=== PATIENT | female | born 1955 | race Caucasian/White ===

== ENCOUNTER 2021-05-10 13:26 | Emergency (ER) | payer MEDICARE ==
[2021-05-10 13:48] VITALS: BP 135/70; PULSE 103; RESP 20; TEMP 98.1
[2021-05-10 15:24] LABS: Basophils % (A) 0 %; Eosinophils # (A) 0.1 k/uL (0-0.7); Eosinophils % (A) 1 %; HCT 37.6 % (34.0-46.0); Lymphocytes # (A) 1.3 k/uL (1.0-4.8); Lymphocytes % (A) 17 %; MCH 31.2 pg (25.0-35.0); MCHC 34.7 g/dL (31.0-37.0); Mean Platelet Volume 6.7; Monocytes # (A) 0.4 k/uL (0-1.0); Monocytes % (A) 5 %; Neutrophils # (A) 5.8 k/uL (1.3-7.7); Neutrophils % (A) 76 %; Platelet Count 303 k/uL (150-450); RBC 4.18 m/uL (3.80-5.40); RDW 13.8 % (11.5-15.5); WBC 7.6 k/uL (3.8-10.6)
[2021-05-10 15:37] LABS: ALT 20 U/L (4-34); AST 30 U/L (14-36); African American GFR (CKD) >90 (>60 ml/min/1.73 sqM); Albumin 4.7 g/dL (3.5-5.0); Alkaline Phosphatase 117 U/L (38-126); Anion Gap 9 mmol/L; Blood Urea Nitrogen 15 mg/dL (7-17); Calcium 9.6 mg/dL (8.4-10.2); Carbon Dioxide 24 mmol/L (22-30); Chloride 105 mmol/L (98-107); Glucose 98 mg/dL (74-99); Non-African American GFR(CKD) >90 (>60 ml/min/1.73 sqM); Potassium 4.1 mmol/L (3.5-5.1); Sodium 138 mmol/L (137-145); Total Bilirubin 0.4 mg/dL (0.2-1.3); Total Protein 7.7 g/dL (6.3-8.2)
--- NOTE | 2021-05-10 16:21 | ED ---
General Adult HPI - General Chief complaint: Extremity Problem,Nontraumatic Stated complaint: lt arm pain Time Seen by Provider: 05/10/21 14:37 Source: patient Mode of arrival: ambulatory Limitations: no limitations - History of Present Illness Initial comments: Patient is a healthy 65-year-old female, presenting to the emergency Department with complaints of having some left arm pain over the last 3 days. She denies any injuries or trauma. No previous surgeries or injuries to her left upper extremity. She states a few days ago she did wake up with a sore left neck, thought she slept wrong and then developed this posterior left arm pain. She d escribes it is near her tricep area with some radiation into her left elbow. She denies any chest pain or shortness of breath, no recent fevers or chills, no nausea or vomiting, no abdominal pain. She states she takes no medications. She was concerned that this pain could be coming from something else other than muscle related and came in for evaluation. She has no history of cardiac events. She has no further complaints at this time. Patient's vitals are stable upon arrival. - Related Data Allergies Allergy/AdvReac Type Severity Reaction Status Date / Time No Known Allergies Allergy Verified 05/10/21 13:44 Review of Systems ROS Statement: Those systems with pertinent positive or pertinent negative responses have been documented in the HPI. ROS Other: All systems not noted in ROS Statement are negative. Past Medical History Past Medical History: No Reported History History of Any Multi-Drug Resistant Organisms: None Reported Past Surgical History: No Surgical Hx Reported Past Psychological History: No Psychological Hx Reported Smoking Status: Never smoker Past Alcohol Use History: None Reported Past Drug Use History: None Reported General Exam - General Exam Comments Initial Comments: GENERAL: Patient is well-developed and well-nourished. Patient is nontoxic and in no acute distress. HEAD: Atraumatic, normocephalic. EYES: Pupils equal round and reactive to light, extraocular movements intact, sclera anicteric, conjunctiva are normal. Eyelids were unremarkable. ENT: Moist mucous membranes. NECK: Normal range of motion, supple without lymphadenopathy or JVD. Patient has some tightness of the left upper trapezius muscle, muscle spasms present. LUNGS: Unlabored respirations. Breath sounds clear to auscultation bilaterally and equal. No wheezes rales or rhonchi. HEART: Regular rate and rhythm without murmurs, rubs or gallops. ABDOMEN: Soft, nontender, normoactive bowel sounds. No guarding, no rebound. No masses appreciated. : Deferred MUSCULOSKELETAL: Normal extremities with adequate strength and normal range of motion, no pitting or edema. No clubbing or cyanosis. No pain of the entire left shoulder, she has full left shoulder range of motion and strength is normal. She does have some mild tenderness noted to the left tricep area, no signs of infection or deformity, no swelling or bruising. NEUROLOGICAL: Patient is alert and oriented x 3. Motor and sensory are also intact. Cranial nerves II through XII grossly intact. Symmetrical smile. Normal speech, normal gait. PSYCH: Normal mood, normal affect. SKIN: Warm, Dry, normal turgor, no rashes or lesions noted. Limitations: no limitations Course Vital Signs 05/10/21 13:45 Temperature 98.1 F Pulse Rate 103 H Respiratory 20 Rate Blood Pressure 135/70 O2 Sat by Pulse 97 Oximetry EKG Findings - EKG Comments: EKG Findings:: Normal sinus rhythm, normal ECG, no signs of acute process. Ventricular rate 89, MI interval 148, QT 360. Medical Decision Making - Medical Decision Making Patient is a 65-year-old female here with some mild left arm pain around her tricep area over the past 3 days. She did have some tightness of her left trapezius muscle on exam, she states she slipped wrong a few days ago. Her EKG showed normal sinus rhythm, no acute process. I did check basic labs and a troponin which were all within normal limits. I discussed with patient this is most likely related to muscle spasm of the left trapezius and some mild radiculopathy. I recommended heat to the area, gentle massage and stretching. If symptoms persist she can follow up with her primary care physician. She is in agreement with this plan of care and is stable for discharge. Case discussed with Dr. Westfall. - Lab Data Result diagrams: 05/10/21 15:17 05/10/21 15:17 Lab Results 05/10/21 05/10/21 05/10/21 Range/Units 15:17 15:17 15:17 WBC 7.6 (3.8-10.6) k/uL RBC 4.18 (3.80-5.40) m/uL Hgb 13.0 (11.4-16.0) gm/dL Hct 37.6 (34.0-46.0) % MCV 90.0 (80.0-100.0) fL MCH 31.2 (25.0-35.0) pg MCHC 34.7 (31.0-37.0) g/dL RDW 13.8 (11.5-15.5) % Plt Count 303 (150-450) k/uL MPV 6.7 Neutrophils % 76 % Lymphocytes % 17 % Monocytes % 5 % Eosinophils % 1 % Basophils % 0 % Neutrophils # 5.8 (1.3-7.7) k/uL Lymphocytes # 1.3 (1.0-4.8) k/uL Monocytes # 0.4 (0-1.0) k/uL Eosinophils # 0.1 (0-0.7) k/uL Basophils # 0.0 (0-0.2) k/uL Sodium 138 (137-145) mmol/L Potassium 4.1 (3.5-5.1) mmol/L Chloride 105 (98-107) mmol/L Carbon Dioxide 24 (22-30) mmol/L Anion Gap 9 mmol/L BUN 15 (7-17) mg/dL Creatinine 0.67 (0.52-1.04) mg/dL Est GFR (CKD-EPI)AfAm >90 (>60 ml/min/1.73 sqM) Est GFR (CKD-EPI)NonAf >90 (>60 ml/min/1.73 sqM) Glucose 98 (74-99) mg/dL Calcium 9.6 (8.4-10.2) mg/dL Total Bilirubin 0.4 (0.2-1.3) mg/dL AST 30 (14-36) U/L ALT 20 (4-34) U/L Alkaline Phosphatase 117 (38-126) U/L Troponin I <0.012 (0.000-0.034) ng/mL Total Protein 7.7 (6.3-8.2) g/dL Albumin 4.7 (3.5-5.0) g/dL Disposition Clinical Impression: Strain of left trapezius muscle, Left arm pain, Muscle spasm Disposition: HOME SELF-CARE Condition: Stable Instructions (If sedation given, give patient instructions): Muscle Spasm (ED) Additional Instructions: Please return to the Emergency Department if symptoms worsen or any other concerns. These use heat to the area, gentle massage, stretching. Follow up with your primary care physician. Is patient prescribed a controlled substance at d/c from ED?: No Referrals: Hermilo Boyd DO [Primary Care Provider] - 1-2 days Time of Disposition: 16:22
== END 2021-05-10 16:30 | disposition home or self-care (01) ==
LOC: EC 13:26
DX: S46.812A Strain of other muscles, fascia and tendons at shoulder and upper arm level, left arm, initial encounter (principal); M62.838 Other muscle spasm; X50.0XXA Overexertion from strenuous movement or load, initial encounter
CPT/HCPCS: 36415; 80053; 84484; 85025; 93005; 99283

== ENCOUNTER → 2021-05-23 | Outpatient (CLI) | payer MEDICARE ==
--- NOTE | 2021-05-23 14:17 | XR ---
EXAMINATION TYPE: XR cervical spine limited DATE OF EXAM: 05/23/2021 COMPARISON: NONE HISTORY: Radiculopathy TECHNIQUE: Four views are submitted. FINDINGS: The odontoid is intact. There are no compression deformities. The prevertebral soft tissue structur es are within normal limits. Severe degenerative disc disease with hypertrophic changes C5-6 and C6- C7. Multilevel facet arthropathy. IMPRESSION: 1. Severe degenerative disc disease C5-6 and C6-C7 with facet arthropathy consider follow-up MRI..
--- NOTE | 2021-05-23 14:18 | XR ---
EXAMINATION TYPE: XR shoulder limited LT DATE OF EXAM: 05/23/2021 COMPARISON: NONE HISTORY: Pain TECHNIQUE: Three views are submitted. FINDINGS: The osseous structures are intact. There is no acute fracture or dislocation. If use osteopenia with AC joint arthropathy. Left apical pleural thickening. IMPRESSION: 1. AC joint arthropathy.
== END | disposition home or self-care (01) ==
LOC: RADXRMAIN 13:45
PROVIDERS: ATTEND Family Medicine
DX: M50.123 Cervical disc disorder at C6-C7 level with radiculopathy (principal); M47.22 Other spondylosis with radiculopathy, cervical region; M19.012 Primary osteoarthritis, left shoulder
CPT/HCPCS: 72040

== ENCOUNTER → 2021-06-14 | Outpatient (CLI) | payer MEDICARE ==
--- NOTE | 2021-06-14 13:17 | XR ---
EXAMINATION TYPE: XR chest 2V DATE OF EXAM: 06/14/2021 COMPARISON: NONE TECHNIQUE: PA and lateral views submitted. HISTORY: Pleural thickening, asbestos exposure FINDINGS: The lungs are clear and there is no pneumothorax, pleural effusion, or focal pneumonia. Coarsened in terstitium. Biapical pleural thickening greater on the left. No pleural calcifications. No overt fail ure. Mild hyperinflation. Degenerative change of the spine. IMPRESSION: 1. COPD correlate for chronic interstitial lung disease. 2. Bilateral apical pleural thickening
== END | disposition home or self-care (01) ==
LOC: RADXRMAIN 12:59
PROVIDERS: ATTEND Family Medicine
DX: J44.9 Chronic obstructive pulmonary disease, unspecified (principal); J92.0 Pleural plaque with presence of asbestos
CPT/HCPCS: 71046

== ENCOUNTER 2022-09-15 03:05 | Emergency (ER) | payer MEDICARE ==
--- NOTE | 2022-09-15 06:49 | ED ---
General Adult HPI - General Source: patient, RN notes reviewed Mode of arrival: wheelchair <Juan Alas - Last Filed: 09/15/22 06:50> <Cory Martino - Last Filed: 09/15/22 10:06> - General Chief complaint: Chest Pain Stated complaint: Difficulty breathing - History of Present Illness Initial comments: 66 year old female without significant PMH was seen for advanced triage purposes in waiting room. She presents to the ER for a chief complaint of pain in the right lower chest area since last night. It started off pretty mild but worsened throughout the night. She noticed it after pulling the plug out on the [place] tree, but she does not recall injuring it at that time. Moving seems to make the pain worse. Taking a deep breath makes it worse as well. Denies shortness of breath aside from difficulty taking a deep breath due to pain. She does not have much pain unless she is moving. If she is sitting still her pain seems to be okay. Denies nausea vomiting diarrhea. She has never had this pain before. Denies pain radiating to arm neck or back. No diaphoresis. Patient denies any associated abdominal pain. (Juan Alas) This is a 66-year-old female presents emergency Department complaining of right sided lateral chest pain. Patient states started last evening when she unplugged the [place] tree and about 10 or 20 minutes later it started to hurt anytime she moved or took a deep breath. Patient denies being short of breath patient denies any anterior chest pain. Patient's any fever chills or cough per patient denies any injury trauma patient does any heavy lifting. Patient states the only thing she murmurs. Lungs bending down and unplugging the [place] tree and she thinks maybe at that point she somehow pulled a muscle. Patient denies any abdominal pain. Patient's any back pain. (Cory Martino) - Related Data Previous Rx's Medication Instructions Recorded Ketorolac [Toradol] 10 mg PO Q8H #15 tab 09/15/22 Allergies Allergy/AdvReac Type Severity Reaction Status Date / Time No Known Allergies Allergy Verified 09/15/22 03:12 Review of Systems ROS Other: All systems not noted in ROS Statement are negative. <Juan Alas - Last Filed: 09/15/22 06:50> ROS Other: All systems not noted in ROS Statement are negative. <Cory Martino - Last Filed: 09/15/22 10:06> ROS Statement: Those systems with pertinent positive or pertinent negative responses have been documented in the HPI. Past Medical History Past Medical History: No Reported History History of Any Multi-Drug Resistant Organisms: None Reported Past Surgical History: No Surgical Hx Reported Past Psychological History: No Psychological Hx Reported Smoking Status: Never smoker Past Alcohol Use History: None Reported Past Drug Use History: None Reported <Karina Alasey - Last Filed: 09/15/22 06:50> General Exam General appearance: alert, in no apparent distress Head exam: Present: atraumatic Eye exam: Present: normal appearance, PERRL, EOMI. Absent: scleral icterus, conjunctival injection ENT exam: Present: normal exam, mucous membranes moist Neck exam: Present: normal inspection. Absent: tenderness Respiratory exam: Present: normal lung sounds bilaterally. Absent: respiratory distress, wheezes Cardiovascular Exam: Present: regular rate, normal rhythm, normal heart sounds, other (tenderness to anterior right thorax ) GI/Abdominal exam: Present: soft, tenderness (mild RUQ tenderness), normal bowel sounds. Absent: distended, guarding, rebound, rigid Neurological exam: Present: alert <BishopJuan - Last Filed: 09/15/22 06:50> <Cory Martino - Last Filed: 09/15/22 10:06> - General Exam Comments Initial Comments: GENERAL: Patient is well-developed and well-nourished. Patient is nontoxic and well- hydrated and is in mild distress. ENT: Neck is soft and supple. No significant lymphadenopathy is noted. Oropharynx is clear. Moist mucous membranes. Neck has full range of motion without eliciting any pain. EYES: The sclera were anicteric and conjunctiva were pink and moist. Extraocular movements were intact and pupils were equal round and reactive to light. Eyelids were unremarkable. PULMONARY: Unlabored respirations. Good breath sounds bilaterally. No audible rales rhonchi or wheezing was noted. CARDIOVASCULAR: There is a regular rate and rhythm without any murmurs gallops or rubs. Patient has pain in the lateral right chest wall with palpation. There is no rashes or lesions there. There is no redness there. ABDOMEN: Soft and nontender with normal bowel sounds. SKIN: Skin is clear with no lesions or rashes and otherwise unremarkable. NEUROLOGIC: Patient is alert and oriented x3. Cranial nerves II through XII are grossly intact. Motor and sensory are also intact. Normal speech, volume and content. Symmetrical smile. MUSCULOSKELETAL: Normal extremities with adequate strength and full range of motion. No lower extremity swelling or edema. No calf tenderness. LYMPHATICS: No significant lymphadenopathy is noted PSYCHIATRIC: Normal psychiatric evaluation. (Cory Martino) Course Vital Signs 09/15/22 09/15/22 09/15/22 03:10 07:14 08:09 Temperature 98.1 F 98 F Pulse Rate 102 H 91 110 H Pulse Rate [ Prototype Engineer Manager ] Respiratory 18 18 20 Rate Blood Pressure 130/82 159/96 151/73 O2 Sat by Pulse 98 95 97 Oximetry 09/15/22 08:12 Temperature Pulse Rate Pulse Rate [ 110 H Prototype Engineer Manager ] Respiratory Rate Blood Pressure O2 Sat by Pulse Oximetry EKG Findings - EKG Comments: EKG Findings:: vent rate 97, pr int 152, QTc 400, normal sinus rhythm <Juan Alas - Last Filed: 09/15/22 06:50> Medical Decision Making - Lab Data Result diagrams: 09/15/22 07:14 09/15/22 07:14 <Cory Martino - Last Filed: 09/15/22 10:06> - Medical Decision Making EKG is interpreted by myself. EKG shows sinus rhythm at 97 bpm OH interval 252 QRS is 90 QT interval 346 QTC is 400. Patient's EKG shows no ST segment elevation or depression. Was pt. sent in by a medical professional or institution ([facility] Mahmood, PHONE CIRCUIT OPERATOR, urgent care, hospital, or long term...) When possible be specific @ -No Did you speak to anyone other than the patient for history (EMS, parent, family, police, friend...)? What history was obtained from this source @ -No Did you review nursing and triage notes (agree or disagree)? Why? @ -I reviewed and agree with nursing and triage notes Were old charts reviewed (outside hosp., previous admission, EMS record, old EKG, old radiological studies, urgent care reports/EKG's, long term records)? Report findings @ -No old charts were reviewed Differential Diagnosis (chest pain, altered mental status, abdominal pain women, abdominal pain men, vaginal bleeding, weakness, fever, dyspnea, syncope, headache, dizziness, GI bleed, back pain, seizure, CVA, palpatations, mental health)? @ -Differential Chest Pain: Stable Angina, Unstable Angina, STEMI, NSTEMI Aortic Dissection, Pneumothorax, Musculoskeletal, Esophageal Spasm GERD, Cholecystitis, Pancreatitis, Zoster, this is not meant to be an all-inclusive list. EKG interpreted by me (3pts min.). @ -As above X-rays interpreted by me (1pt min.). @ -I interpreted the chest x-ray shows no acute abnormality. CT interpreted by me (1pt min.). @ -I interpreted the CT of the chest. CT of chest showed no signs of PE or infiltrate U/S interpreted by me (1pt. min.). @ -None done What testing was considered but not performed or refused? (CT, X-rays, U/S, labs)? Why? @ -None What meds were considered but not given or refused? Why? @ -None Did you discuss the management of the patient with other professionals (professionals i.e. , PA, PHONE CIRCUIT OPERATOR, lab, RT, psych nurse, social media content specialist, wheat grower, teacher, cash management officer, case hardener)? Give summary @ -No Was smoking cessation discussed for >3mins.? @ -No Was critical care preformed (if so, how long)? @ -No Were there social determinants of health that impacted care today? How? (Homelessness, low income, unemployed, alcoholism, drug addiction, tra nsportation, low edu. Level, literacy, decrease access to med. care, fci, rehab)? @ -No Was there de-escalation of care discussed even if they declined (Discuss DNR or withdrawal of care, Hospice)? DNR status @ -No What co-morbidities impacted this encounter? (DM, HTN, Smoking, COPD, CAD, Cancer, CVA, ARF, Chemo, Hep., AIDS, mental health diagnosis, sleep apnea, morbid obesity)? @ -None Was patient admitted / discharged? Hospital course, mention meds given and route, prescriptions, significant lab abnormalities, going to OR and other pertinent info. @ -Patient will be discharged home after extensive testing and lab work is determined that the patient is a musculoskeletal pain in the chest and the Toradol significantly improved her symptoms. Patient will be sent home with Toradol Undiagnosed new problem with uncertain prognosis? @ -No Drug Therapy requiring intensive monitoring for toxicity (Heparin, Nitro, Insulin, Cardizem)? @ -No Were any procedures done? @ -No Diagnosis/symptom? @ -Musculoskeletal chest wall pain Acute, or Chronic, or Acute on Chronic? @ -Acute Uncomplicated (without systemic symptoms) or Complicated (systemic symptoms)? @ -Uncomplicated Side effects of treatment? @ -No Exacerbation, Progression, or Severe Exacerbation? @ -No Poses a threat to life or bodily function? How? (Chest pain, [place], [place], pneumonia, PE, COPD, DKA, ARF, appy, cholecystitis, CVA, Diverticulitis, Homicidal, Suicidal, threat to staff... and all critical care pts) @ -No (Cory Martino) - Lab Data Lab Results 09/15/22 09/15/22 09/15/22 Range/Units 07:14 07:14 07:14 WBC 9.5 (3.8-10.6) k/uL RBC 4.12 (3.80-5.40) m/uL Hgb 12.9 (11.4-16.0) gm/dL Hct 37.2 (34.0-46.0) % MCV 90.3 (80.0-100.0) fL MCH 31.4 (25.0-35.0) pg MCHC 34.7 (31.0-37.0) g/dL RDW 13.4 (11.5-15.5) % Plt Count 264 (150-450) k/uL MPV 7.8 Neutrophils % 80 % Lymphocytes % 13 % Monocytes % 5 % Eosinophils % 0 % Basophils % 0 % Neutrophils # 7.7 (1.3-7.7) k/uL Lymphocytes # 1.2 (1.0-4.8) k/uL Monocytes # 0.5 (0-1.0) k/uL Eosinophils # 0.0 (0-0.7) k/uL Basophils # 0.0 (0-0.2) k/uL PT 11.0 (9.0-12.0) sec INR 1.0 (<1.2) APTT 26.5 (22.0-30.0) sec D-Dimer 0.93 H (<0.60) mg/L FEU Sodium 142 (137-145) mmol/L Potassium 4.0 (3.5-5.1) mmol/L Chloride 107 (98-107) mmol/L Carbon Dioxide 26 (22-30) mmol/L Anion Gap 9 mmol/L BUN 14 (7-17) mg/dL Creatinine 0.59 (0.52-1.04) mg/dL Est GFR (CKD-EPI)AfAm >90 (>60 ml/min/1.73 sqM) Est GFR (CKD-EPI)NonAf >90 (>60 ml/min/1.73 sqM) Glucose 115 H (74-99) mg/dL Calcium 9.2 (8.4-10.2) mg/dL Magnesium 2.0 (1.6-2.3) mg/dL Total Bilirubin 0.5 (0.2-1.3) mg/dL AST 24 (14-36) U/L ALT 22 (4-34) U/L Alkaline Phosphatase 124 (38-126) U/L Troponin I (0.000-0.034) ng/mL Total Protein 8.2 (6.3-8.2) g/dL Albumin 4.7 (3.5-5.0) g/dL Lipase 84 (23-300) U/L 09/15/22 Range/Units 07:14 WBC (3.8-10.6) k/uL RBC (3.80-5.40) m/uL Hgb (11.4-16.0) gm/dL Hct (34.0-46.0) % MCV (80.0-100.0) fL MCH (25.0-35.0) pg MCHC (31.0-37.0) g/dL RDW (11.5-15.5) % Plt Count (150-450) k/uL MPV Neutrophils % % Lymphocytes % % Monocytes % % Eosinophils % % Basophils % % Neutrophils # (1.3-7.7) k/uL Lymphocytes # (1.0-4.8) k/uL Monocytes # (0-1.0) k/uL Eosinophils # (0-0.7) k/uL Basophils # (0-0.2) k/uL PT (9.0-12.0) sec INR (<1.2) APTT (22.0-30.0) sec D-Dimer (<0.60) mg/L FEU Sodium (137-145) mmol/L Potassium (3.5-5.1) mmol/L Chloride (98-107) mmol/L Carbon Dioxide (22-30) mmol/L Anion Gap mmol/L BUN (7-17) mg/dL Creatinine (0.52-1.04) mg/dL Est GFR (CKD-EPI)AfAm (>60 ml/min/1.73 sqM) Est GFR (CKD-EPI)NonAf (>60 ml/min/1.73 sqM) Glucose (74-99) mg/dL Calcium (8.4-10.2) mg/dL Magnesium (1.6-2.3) mg/dL Total Bilirubin (0.2-1.3) mg/dL AST (14-36) U/L ALT (4-34) U/L Alkaline Phosphatase (38-126) U/L Troponin I <0.012 (0.000-0.034) ng/mL Total Protein (6.3-8.2) g/dL Albumin (3.5-5.0) g/dL Lipase (23-300) U/L Disposition <Juan Alas - Last Filed: 09/15/22 06:50> Is patient prescribed a controlled substance at d/c from ED?: No Time of Disposition: 10:05 <Cory Martino - Last Filed: 09/15/22 10:06> Clinical Impression: Chest pain, musculoskeletal Disposition: HOME SELF-CARE Condition: Good Instructions (If sedation given, give patient instructions): Chest Pain (ED) Prescriptions: Ketorolac [Toradol] 10 mg PO Q8H #15 tab Referrals: Adriane Elmore DO [Primary Care Provider] - 1-2 days
[2022-09-15 07:23] LABS: Basophils % (A) 0 %; Eosinophils % (A) 0 %; HCT 37.2 % (34.0-46.0); HGB 12.9 gm/dL (11.4-16.0); Lymphocytes # (A) 1.2 k/uL (1.0-4.8); Lymphocytes % (A) 13 %; MCH 31.4 pg (25.0-35.0); MCHC 34.7 g/dL (31.0-37.0); MCV 90.3 fL (80.0-100.0); Mean Platelet Volume 7.8; Monocytes # (A) 0.5 k/uL (0-1.0); Monocytes % (A) 5 %; Neutrophils # (A) 7.7 k/uL (1.3-7.7); Neutrophils % (A) 80 %; Platelet Count 264 k/uL (150-450); RBC 4.12 m/uL (3.80-5.40); RDW 13.4 % (11.5-15.5); WBC 9.5 k/uL (3.8-10.6)
[2022-09-15 07:34] LABS: ALT 22 U/L (4-34); AST 24 U/L (14-36); African American GFR (CKD) >90 (>60 ml/min/1.73 sqM); Albumin 4.7 g/dL (3.5-5.0); Alkaline Phosphatase 124 U/L (38-126); Anion Gap 9 mmol/L; Blood Urea Nitrogen 14 mg/dL (7-17); Calcium 9.2 mg/dL (8.4-10.2); Carbon Dioxide 26 mmol/L (22-30); Chloride 107 mmol/L (98-107); Glucose 115 mg/dL (74-99); Lipase 84 U/L (23-300); Non-African American GFR(CKD) >90 (>60 ml/min/1.73 sqM); Sodium 142 mmol/L (137-145); Total Bilirubin 0.5 mg/dL (0.2-1.3); Total Protein 8.2 g/dL (6.3-8.2)
[2022-09-15 07:39] LABS: Partial Thromboplastin Time 26.5 sec (22.0-30.0)
[2022-09-15 08:11] VITALS: TEMP 98
[2022-09-15] MEDS ORDERED: KETOROLAC 15 MG/ML 1 ML VIAL IVP STA (08:13)
--- NOTE | 2022-09-15 08:20 | XR ---
EXAMINATION TYPE: XR chest 2V DATE OF EXAM: 09/15/2022 COMPARISON: Chest x-ray June 14, 2021 HISTORY: Chest pain. TECHNIQUE: Frontal and lateral views of the chest are obtained. FINDINGS: There is diminished inspiration with left basilar opacity. The cardiac silhouette size is stable and within normal limits. The osseous structures are intact. IMPRESSION: Diminished inspiration with new left basilar acute infiltrate and/or atelectasis.
--- NOTE | 2022-09-15 09:41 | CT ---
EXAMINATION TYPE: CT chest angio for PE DATE OF EXAM: 09/15/2022 COMPARISON: CXR earlier today. HISTORY: D-dimer pleuritic chest pain CT DLP: 303 mGycm. Automated Exposure Control for Dose Reduction was Utilized. CONTRAST: CTA scan of the thorax is performed without and with IV Contrast, patient injected with 100 ml mL of Isovue 370, pulmonary embolism protocol. MIP Images are created on CT scanner and reviewed. FINDINGS: LUNGS: Mild to moderate posterior bibasilar linear scarring and/or atelectasis in the lower lungs. Mi ld biapical pleural/parenchymal scarring bilaterally. No pleural effusion or pneumothorax is seen [place] MEDIASTINUM: There is suboptimal study with most dense contrast in the SVC. There is contrast opacifi cation of the aorta without aneurysm or dissection. There is four-vessel aortic arch which is normal variant. There is no convincing CT evidence for acute pulmonary embolism.. There are no greater than 1 cm hilar or mediastinal lymph nodes. Heart size upper limits of normal. No pericardial effusion is seen. OTHER: No additional significant abnormality is seen. IMPRESSION: No CT evidence for acute pulmonary embolism. Mild to moderate bilateral lower lung linear scarring and/or atelectasis. No suspicious focal consolidation.
[2022-09-15 10:19] VITALS: BP 152/90; PULSE 81; RESP 16
== END 2022-09-15 10:23 | disposition home or self-care (01) ==
LOC: EC 03:05
DX: R07.9 Chest pain, unspecified (principal); M79.18 Myalgia, other site
CPT/HCPCS: 99285; 36415; 93005; 85379; 80053; 83690; 83735; 84484; 85025; 85610; 85730; 71046; 71275; 96374; J1885; Q9967

== ENCOUNTER 2024-09-21 18:30 | Observation (INO) | payer MEDICARE ==
--- NOTE | 2024-09-21 19:22 | ED ---
General Adult HPI - General Chief complaint: Chest Pain Stated complaint: chest pain Time Seen by Provider: 09/21/24 18:40 Source: patient, family, RN notes reviewed, old records reviewed Mode of arrival: wheelchair Limitations: no limitations - History of Present Illness Initial comments: This is a 68-year-old female who presents to the emergency department complaining of chest pain. Patient states at 6:00 tonight she started experiencing some significant chest pain in the center of her chest that lasted about 15 minutes and eventually subsided on her way to the hospital. Patient denies any difficulty breathing or shortness of breath. Patient denies any nausea. Patient has any diaphoretic episode. Patient denies any palpitations. Patient denies any recent fever chills or cough. Patient denies any previous cardiac disease. Patient is not on any medications. Patient denies high blood pressure high cholesterol or smoking history. patient states she does have a strong family history for heart disease because her father had some heart disease. Patient denies any swelling to her legs or calf tenderness. - Related Data Home Medications Medication Instructions Recorded Confirmed No Known Home Medications 09/21/24 09/21/24 Allergies Allergy/AdvReac Type Severity Reaction Status Date / Time No Known Allergies Allergy Verified 09/21/24 19:26 Review of Systems ROS Statement: Those systems with pertinent positive or pertinent negative responses have been documented in the HPI. ROS Other: All systems not noted in ROS Statement are negative. Past Medical History Past Medical History: No Reported History History of Any Multi-Drug Resistant Organisms: None Reported Past Surgical History: No Surgical Hx Reported Past Psychological History: No Psychological Hx Reported Smoking Status: Never smoker Past Alcohol Use History: None Reported Past Drug Use History: None Reported General Exam - General Exam Comments Initial Comments: GENERAL: Patient is well-developed and well-nourished. Patient is nontoxic and well- hydrated and is in no acute distress. ENT: Neck is soft and supple. No significant lymphadenopathy is noted. Oropharynx is clear. Moist mucous membranes. Neck has full range of motion without eliciting any pain. EYES: The sclera were anicteric and conjunctiva were pink and moist. Extraocular movements were intact and pupils were equal round and reactive to light. Eyelids were unremarkable. PULMONARY: Unlabored respirations. Good breath sounds bilaterally. No audible rales rhonchi or wheezing was noted. CARDIOVASCULAR: There is a regular rate and rhythm without any murmurs gallops or rubs. ABDOMEN: Soft and nontender with normal bowel sounds. SKIN: Skin is clear with no lesions or rashes and otherwise unremarkable. NEUROLOGIC: Patient is alert and oriented x3. Cranial nerves II through XII are grossly intact. Motor and sensory are also intact. Normal speech, volume and content. Symmetrical smile. MUSCULOSKELETAL: Normal extremities with adequate strength and full range of motion. No lower extremity swelling or edema. No calf tenderness. LYMPHATICS: No significant lymphadenopathy is noted PSYCHIATRIC: Normal psychiatric evaluation. Limitations: no limitations Course Vital Signs 09/21/24 09/21/24 09/21/24 18:33 19:11 21:00 Temperature 97.9 F Pulse Rate 120 H 96 Pulse Rate [ 114 H Aluminum Siding Installer ] Respiratory 20 18 Rate Blood Pressure 132/79 137/75 O2 Sat by Pulse 98 99 Oximetry Medical Decision Making - Medical Decision Making EKG is interpreted by myself. EKG shows sinus tachycardia at 104 bpm NH was under 62 QRS is 88 QT interval 327 QTc is 388. Patient's EKG shows no ST segment elevation or depression Was pt. sent in by a medical professional or institution (, PA, SILK SCREEN PRINTING RACKER, urgent care, hospital, or usp...) When possible be specific @ -No Did you speak to anyone other than the patient for history (EMS, parent, family, police, friend...)? What history was obtained from this source @ -No Did you review nursing and triage notes (agree or disagree)? Why? @ -I reviewed and agree with nursing and triage notes Were old charts reviewed (outside hosp., previous admission, EMS record, old EKG, old radiological studies, urgent care reports/EKG's, usp records)? Report findings @ -No old charts were reviewed Differential Diagnosis? @ -Differential Chest Pain: Stable Angina, Unstable Angina, STEMI, NSTEMI Aortic Dissection, Pneumothorax, Musculoskeletal, Esophageal Spasm GERD, Cholecystitis, Pancreatitis, Zoster, this is not meant to be an all-inclusive list. EKG interpreted by me (3pts min.). @ -As above X-rays interpreted by me (1pt min.). @ -Chest x-ray shows no acute abnormality CT interpreted by me (1pt min.). @ -CT of the chest shows no pulmonary embolism and no lung abnormality U/S interpreted by me (1pt. min.). @ -None done What testing was considered but not performed or refused? (CT, X-rays, U/S, labs)? Why? @ -None What meds were considered but not given or refused? Why? @ -None Did you discuss the management of the patient with other professionals (professionals i.e. , PA, SILK SCREEN PRINTING RACKER, lab, RT, psych nurse, social media marketer, sap technical developer, teacher, fiscal officer, family service caseworker)? Give summary @ -I spoke with Dr. Trudy Pham and agreed to admit the patient admit the patient wrote admitting orders Was smoking cessation discussed for >3mins.? @ -No Was critical care preformed (if so, how long)? @ -No Were there social determinants of health that impacted care today? How? (Homelessness, low income, unemployed, alcoholism, drug addiction, alford sportation, low edu. Level, literacy, decrease access to med. care, prison, rehab)? @ -No Was there de-escalation of care discussed even if they declined (Discuss DNR or withdrawal of care, Hospice)? DNR status @ -No What co-morbidities impacted this encounter? (DM, HTN, Smoking, COPD, CAD, Cancer, CVA, ARF, Chemo, Hep., AIDS, mental health diagnosis, sleep apnea, morbid obesity)? @ -None Was patient admitted / discharged? Hospital course, mention meds given and route, prescriptions, significant lab abnormalities, going to OR and other pertinent info. @ -Patient was chest pain free throughout his ED course CT was normal labs were normal patient will be admitted to Dr. Yates with a consult to cardiology Undiagnosed new problem with uncertain prognosis? @ -No Drug Therapy requiring intensive monitoring for toxicity (Heparin, Nitro, Insulin, Cardizem)? @ -No Were any procedures done? @ -No Diagnosis/symptom? @ -Chest pain Acute, or Chronic, or Acute on Chronic? @ -Acute Uncomplicated (without systemic symptoms) or Complicated (systemic symptoms)? @ -Complicated Side effects of treatment? @ -No Exacerbation, Progression, or Severe Exacerbation? @ -No Poses a threat to life or bodily function? How? (Chest pain, USA, CT, pneumonia, PE, COPD, DKA, ARF, appy, cholecystitis, CVA, Diverticulitis, Homicidal, Suicidal, threat to staff... and all critical care pts) @ -Yes this could lead to an CT and significant endorgan dysfunction - Lab Data Result diagrams: 09/21/24 19:06 09/21/24 19:06 Lab Results 09/21/24 09/21/24 09/21/24 Range/Units 19:06 19:06 19:06 WBC 9.0 (3.8-10.6) k/uL RBC 4.14 (3.80-5.40) m/uL Hgb 12.7 (11.4-16.0) gm/dL Hct 37.6 (34.0-46.0) % MCV 90.7 (80.0-100.0) fL MCH 30.6 (25.0-35.0) pg MCHC 33.7 (31.0-37.0) g/dL RDW 13.2 (11.5-15.5) % Plt Count 279 (150-450) k/uL MPV 7.3 Neutrophils % 60 % Lymphocytes % 28 % Monocytes % 9 % Eosinophils % 1 % Basophils % 0 % Neutrophils # 5.4 (1.3-7.7) k/uL Lymphocytes # 2.6 (1.0-4.8) k/uL Monocytes # 0.8 (0-1.0) k/uL Eosinophils # 0.1 (0-0.7) k/uL Basophils # 0.0 (0-0.2) k/uL PT 10.5 (10.0-12.5) sec INR 0.9 (<1.2) APTT 23.3 (22.0-30.0) sec D-Dimer 0.85 H (<0.60) mg/L FEU Sodium 139 (137-145) mmol/L Potassium 4.2 (3.5-5.1) mmol/L Chloride 104 (98-107) mmol/L Carbon Dioxide 25 (22-30) mmol/L Anion Gap 10 mmol/L BUN 21 H (7-17) mg/dL Creatinine 0.71 (0.52-1.04) mg/dL Est GFR (CKD-EPI)AfAm >90 (>60 ml/min/1.73 sqM) Est GFR (CKD-EPI)NonAf 87 (>60 ml/min/1.73 sqM) Glucose 141 H (74-99) mg/dL Calcium 9.7 (8.4-10.2) mg/dL Magnesium 1.9 (1.6-2.3) mg/dL Total Bilirubin 0.7 (0.2-1.3) mg/dL AST 34 (14-36) U/L ALT 30 (4-34) U/L Alkaline Phosphatase 110 (38-126) U/L Troponin I (0.000-0.034) ng/mL Total Protein 7.9 (6.3-8.2) g/dL Albumin 4.5 (3.5-5.0) g/dL Influenza Type A (PCR) (Not Detectd) Influenza Type B (PCR) (Not Detectd) RSV (PCR) (Not Detectd) SARS-CoV-2 (PCR) (Not Detectd) 09/21/24 09/21/24 Range/Units 19:06 19:06 WBC (3.8-10.6) k/uL RBC (3.80-5.40) m/uL Hgb (11.4-16.0) gm/dL Hct (34.0-46.0) % MCV (80.0-100.0) fL MCH (25.0-35.0) pg MCHC (31.0-37.0) g/dL RDW (11.5-15.5) % Plt Count (150-450) k/uL MPV Neutrophils % % Lymphocytes % % Monocytes % % Eosinophils % % Basophils % % Neutrophils # (1.3-7.7) k/uL Lymphocytes # (1.0-4.8) k/uL Monocytes # (0-1.0) k/uL Eosinophils # (0-0.7) k/uL Basophils # (0-0.2) k/uL PT (10.0-12.5) sec INR (<1.2) APTT (22.0-30.0) sec D-Dimer (<0.60) mg/L FEU Sodium (137-145) mmol/L Potassium (3.5-5.1) mmol/L Chloride (98-107) mmol/L Carbon Dioxide (22-30) mmol/L Anion Gap mmol/L BUN (7-17) mg/dL Creatinine (0.52-1.04) mg/dL Est GFR (CKD-EPI)AfAm (>60 ml/min/1.73 sqM) Est GFR (CKD-EPI)NonAf (>60 ml/min/1.73 sqM) Glucose (74-99) mg/dL Calcium (8.4-10.2) mg/dL Magnesium (1.6-2.3) mg/dL Total Bilirubin (0.2-1.3) mg/dL AST (14-36) U/L ALT (4-34) U/L Alkaline Phosphatase (38-126) U/L Troponin I <0.012 (0.000-0.034) ng/mL Total Protein (6.3-8.2) g/dL Albumin (3.5-5.0) g/dL Influenza Type A (PCR) Not Detected (Not Detectd) Influenza Type B (PCR) Not Detected (Not Detectd) RSV (PCR) Not Detected (Not Detectd) SARS-CoV-2 (PCR) Not Detected (Not Detectd) Disposition Clinical Impression: Chest pain Disposition: ADMITTED IP TO THIS HOSP Referrals: Gregorio Yates MD [Primary Care Provider] - 1-2 days Time of Disposition: 21:20
[2024-09-21 19:31] LABS: Basophils % (A) 0 %; Eosinophils # (A) 0.1 k/uL (0-0.7); Eosinophils % (A) 1 %; HCT 37.6 % (34.0-46.0); HGB 12.7 gm/dL (11.4-16.0); Lymphocytes # (A) 2.6 k/uL (1.0-4.8); Lymphocytes % (A) 28 %; MCH 30.6 pg (25.0-35.0); MCHC 33.7 g/dL (31.0-37.0); MCV 90.7 fL (80.0-100.0); Mean Platelet Volume 7.3; Monocytes # (A) 0.8 k/uL (0-1.0); Monocytes % (A) 9 %; Neutrophils # (A) 5.4 k/uL (1.3-7.7); Neutrophils % (A) 60 %; Platelet Count 279 k/uL (150-450); RBC 4.14 m/uL (3.80-5.40); RDW 13.2 % (11.5-15.5)
[2024-09-21 19:37] LABS: ALT 30 U/L (4-34); AST 34 U/L (14-36); African American GFR (CKD) >90 (>60 ml/min/1.73 sqM); Albumin 4.5 g/dL (3.5-5.0); Alkaline Phosphatase 110 U/L (38-126); Anion Gap 10 mmol/L; Blood Urea Nitrogen 21 mg/dL (7-17); Calcium 9.7 mg/dL (8.4-10.2); Carbon Dioxide 25 mmol/L (22-30); Chloride 104 mmol/L (98-107); Glucose 141 mg/dL (74-99); Magnesium 1.9 mg/dL (1.6-2.3); Non-African American GFR(CKD) 87 (>60 ml/min/1.73 sqM); Potassium 4.2 mmol/L (3.5-5.1); Sodium 139 mmol/L (137-145); Total Bilirubin 0.7 mg/dL (0.2-1.3); Total Protein 7.9 g/dL (6.3-8.2)
--- NOTE | 2024-09-21 19:44 | XR ---
EXAMINATION TYPE: XR chest 2V DATE OF EXAM: 09/21/2024 7:20 PM CLINICAL INDICATION:Female, 68 years old with history of Chest Pain; [facility] COMPARISON: Chest radiographs from 09/15/2022 TECHNIQUE: XR chest 2V Frontal view of the chest. FINDINGS: Lungs/Pleura: Prominence of the interstitial markings bilaterally. Left basilar atelectasis. There is no evidence of pleural effusion, focal consolidation, or pneumothorax. Pulmonary vascularity: Unremarkable. Heart/mediastinum: Cardiomediastinal silhouette is unremarkable. Musculoskeletal: No acute osseous pathology. Other findings: None IMPRESSION: Mild interstitial markings bilaterally likely chronic in nature with left basilar atelectasis. No oth er acute cardiopulmonary disease/process. [facility], , 09/21/2024 7:42 PM
[2024-09-21 19:53] LABS: INR 0.9 (<1.2); Partial Thromboplastin Time 23.3 sec (22.0-30.0); Prothrombin Time 10.5 sec (10.0-12.5)
[2024-09-21 19:59] LABS: Influenza A Not Detected (Not Detectd); Influenza B Not Detected (Not Detectd); RSV Not Detected (Not Detectd)
[2024-09-21] MEDS ORDERED: NITROGLYCERIN SL TABS 0.4 MG TAB SUBLINGUAL PRN (21:20)
[2024-09-21] MEDS: ASPIRIN 81 MG PO STA (21:34)
--- NOTE | 2024-09-21 21:46 | CT ---
EXAMINATION TYPE: CT chest angio for PE CT DLP: 364.8 mGycm, Automated exposure control for dose reduction was used. DATE OF EXAM: 09/21/2024 8:49 PM COMPARISON: Chest radiograph from same day. CTA chest 09/15/2022. CLINICAL INDICATION:Female, 68 years old with history of Elevated D-dimer, chest pain; Chest pain and elevated d-dimer. TECHNIQUE/CONTRAST: CTA scan of the thorax is performed with IV Contrast, patient injected with 100cc mL of Isovue 370, M IP images are created and reviewed these are created on a separate workstation.. FINDINGS: Pulmonary Artery: There is no evidence for a filling defect within the pulmonary vasculature to sugge st acute pulmonary embolism. The pulmonary artery is of normal size. Lungs/Pleura: No evidence of focal consolidation, pleural effusion or pneumothorax. Biapical scarring . Airway: Large airways are patent. Subtle bronchiectasis involving the bilateral lower lobes. Heart: Heart is within normal limits for size. Vasculature: No evidence of aortic aneurysm. Mediastinum: No gross evidence of adenopathy. Musculoskeletal: No acute osseous abnormalities Soft Tissues/lymph nodes: Unremarkable. Lower neck: Heterogenous and enlarged appearance of the thyroid gland. Upper Abdomen: Mild prominence of the collecting system bilaterally partially visualized. Scattered n onenlarged lymph nodes seen in the partially visualized abdomen. IMPRESSION: 1. No evidence of pulmonary embolism or acute intrathoracic process. 2. Mild prominence of collecting system is only partially seen on this exam. If clinical concern for renal dysfunction is present consider dedicated renal ultrasound for further evaluation. [facility], , 09/21/2024 9:44 PM
[2024-09-22] MEDS: NITROGLYCERIN OINT 1 INCH/GM PACKET TOPICAL SCH (00:56)
[2024-09-22] MEDS ORDERED: ASPIRIN 325 MG TAB PO SCH (09:00)
[2024-09-22 09:05] LABS: Chol/HDL Ratio 4.82 Ratio; LDL Cholesterol,Calculated 162.3 mg/dL (0.0-131.0)
--- NOTE | 2024-09-22 09:20 | P.CRDCN ---
History of Present Illness History of present illness: HISTORY OF PRESENT ILLNESS: This is a 68-year-old female with no significant past medical history. 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 We have been asked to see the patient in co nsultation for chest pain. Patient examined at the bedside in the emergency room. Patient states yesterday she began to have chest discomfort. She states the pain was in the middle of her chest. She denied any radiation of the pain. Denied any shortness of breath. Denied any diaphoresis. Denied any nausea or vomiting. She states the pain lasted for about 10 or 15 minutes and then went away on its own. She states shortly afterwards the pain came back again but it was not as severe. She states that she has not had chest pain like this in the past. She denies any known history of CAD. Denies any known history of hypertension, hyperlipidemia, or diabetes. She is a non-smoker. She denies alcohol use or drug use. DIAGNOSTICS: - EKG reveals sinus mechanism with no signs of acute ischemia. - Chest xray mild interstitial markings bilaterally likely chronic in nature with left basilar atelectasis. No other acute cardiopulmonary process. CT angio: Negative for pulmonary embolism or acute intrathoracic process. - Laboratory data: WBC 9.0. Hemoglobin 12.7. Platelet count 279. D-dimer 0.85. Sodium 139. Potassium 4.2. BUN 21. Creatinine 0.71. Magnesium 1.9. Troponin negative x 3. Cholesterol 232. LDL 162.3 - Current home cardiac medications include none - No previous echocardiogram, stress test, or cardiac catheterization available in EMR for review REVIEW OF SYSTEMS: At the time of my exam: CONSTITUTIONAL: Denies fever or chills. HEENT: Denies blurred vision, vision changes, or eye pain. Denies hemoptysis CARDIOVASCULAR: Denies chest pain. Denies orthopnea. Denies PND. Denies palpitations RESPIRATORY: Denies shortness of breath. GASTROINTESTINAL: Denies abdominal pain. Denies nausea or vomiting. HEMATOLOGIC: Denies bleeding disorders. GENITOURINARY: Denies any blood in urine. SKIN: Denies pruitis. Denies rash. PHYSICAL EXAM: VITAL SIGNS: Reviewed. GENERAL: Well-developed in no acute distress. HEENT: Head is normocephalic. Pupils are equal, round. Sclerae anicteric. Mucous membranes of the mouth are moist. Neck supple. No JVD or thyromegaly LUNGS: Respirations even and unlabored. Lungs essentially clear to auscultation bilaterally. HEART: Regular rate and rhythm. S1 and S2 heard. ABDOMEN: Soft. Nondistended. Nontender. EXTREMITIES: Normal range of motion. No clubbing or cyanosis. Peripheral pulses intact. No lower extremity edema NEUROLOGIC: Awake and alert. Oriented x 3. ASSESSMENT: Chest pain, troponin negative x 3 Hyperlipidemia, LDL 162.3 Obesity: BMI 33.2 PLAN: An acute coronary event has been ruled out Obtain 2D echo to assess cardiac structure and function Reduce aspirin to 81 mg daily Add atorvastatin 40 mg at night as LDL resulted at 162.3 Check hemoglobin A1c Patient to undergo stress echocardiogram today If negative, patient may be discharged home from a cardiac standpoint Patient to follow-up postdischarge with Dr. Parks Nurse practitioner note has been reviewed by physician. Signing provider agrees with the documented findings, assessment, and plan of care documented by SHANK RANDER as a scribe. Past Medical History Past Medical History: No Reported History History of Any Multi-Drug Resistant Organisms: None Reported Past Surgical History: No Surgical Hx Reported Past Psychological History: No Psychological Hx Reported Smoking Status: Never smoker Past Alcohol Use History: None Reported Past Drug Use History: None Reported Medications and Allergies Home Medications Medication Instructions Recorded Confirmed Type No Known Home Medications 09/21/24 09/21/24 History Allergies Allergy/AdvReac Type Severity Reaction Status Date / Time No Known Allergies Allergy Verified 09/21/24 19:26 Physical Exam Vitals: Vital Signs Temp Pulse Pulse Resp BP Pulse Ox 09/22/24 06:48 86 18 128/77 97 09/21/24 23:57 82 18 130/56 99 09/21/24 21:00 96 18 137/75 99 09/21/24 19:11 114 H 09/21/24 18:33 97.9 F 120 H 20 132/79 98 Intake and Output 09/21/24 09/22/24 09/22/24 22:59 06:59 14:59 Other: Weight 77.111 kg Results 09/21/24 19:06 09/21/24 19:06 Cardiac Enzymes 09/21/24 09/21/24 09/21/24 Range/Units 19:06 19:06 21:46 AST 34 (14-36) U/L Troponin I <0.012 <0.012 (0.000-0.034) ng/mL 09/22/24 Range/Units 00:36 AST (14-36) U/L Troponin I <0.012 (0.000-0.034) ng/mL Coagulation 09/21/24 Range/Units 19:06 PT 10.5 (10.0-12.5) sec APTT 23.3 (22.0-30.0) sec CBC 09/21/24 Range/Units 19:06 WBC 9.0 (3.8-10.6) k/uL RBC 4.14 (3.80-5.40) m/uL Hgb 12.7 (11.4-16.0) gm/dL Hct 37.6 (34.0-46.0) % Plt Count 279 (150-450) k/uL Comprehensive Metabolic Panel 09/21/24 Range/Units 19:06 Sodium 139 (137-145) mmol/L Potassium 4.2 (3.5-5.1) mmol/L Chloride 104 (98-107) mmol/L Carbon Dioxide 25 (22-30) mmol/L BUN 21 H (7-17) mg/dL Creatinine 0.71 (0.52-1.04) mg/dL Glucose 141 H (74-99) mg/dL Calcium 9.7 (8.4-10.2) mg/dL AST 34 (14-36) U/L ALT 30 (4-34) U/L Alkaline Phosphatase 110 (38-126) U/L Total Protein 7.9 (6.3-8.2) g/dL Albumin 4.5 (3.5-5.0) g/dL Current Medications Generic Name Dose Route Start Last Admin Trade Name Freq PRN Reason Stop Dose Admin Aspirin 325 mg 09/22/24 09:00 Aspirin 325 Mg Tab PO DAILY BASSAM Nitroglycerin 0.4 mg 09/21/24 21:20 Nitroglycerin Sl Tabs 0.4 Mg Tab SUBLINGUAL Q5M PRN Chest Pain Nitroglycerin 1 inch 09/22/24 00:00 09/22/24 06:27 Nitroglycerin Oint 1 Inch/Gm Packet TOPICAL Not Given Q6HR BASSAM Intake and Output 09/21/24 09/22/24 09/22/24 22:59 06:59 14:59 Other: Weight 77.111 kg 09/21/24 19:06 09/21/24 19:06
[2024-09-22] MEDS: ASPIRIN 81 MG PO SCH (10:17)
[2024-09-22 16:00] VITALS: BP 121/80; PULSE 70; RESP 17; TEMP 97.8
--- NOTE | 2024-09-22 17:58 | CA ---
Stress Echo Report Miriam Diaz Age: 68 Gender: F : 1955 Exam Date: 09/22/2024 09:13 Exam Location: [facility] Ht (in): 60 Wt (lb): 170 Ordering Physician: Carey Noguera Referring Physician: [id number] Duct Maker: SAMI Technologist Procedure CPT: Indication: CP ICD-9 Codes: Rhythm: Patient History: Cardiac Medications: SEE CHART Medications in past 24 hours: Contrast: Definity Stress Results Protocol: Abelardo Total dose(mL): 2 Exercise Duration (min:sec): 3:[address] Depression (mm): Angina Score: Walters Score: METS: 5.0 Resting HR: 99 Resting BP: 132 / 87 Peak HR: 166 Peak BP: 170 / 70 Max Predicted HR: 150 111 % Max Predicted HR Target HR: 128 Double Product: 52999 Stress Summary: The patient's target heart rate was achieved BP Response: Normal Reason for Termination: Maximal effort/unable to continue Cardiac Symptoms: SHORT OF BREATH ECG Analysis Resting ECG: Normal sinus rhythm, normal ECG Stress ECG: No abnormal ST/T wave changes with exercise Arrhythmia: None Echo Analysis Resting Echo: Normal resting echocardiogram. Peak Echo Analysis: Normal wall thickening and motion MEASUREMENTS (Male/Female) Normal Values CONCLUSIONS 1. Poor exercise tolerance with normal electrocardiographic response to exercise 2. Normal stress echocardiogram with no evidence of stress- induced ischemia Dr. Brandee Parks MD (Electronically Signed) Final Date: 22 September 2024 17:57
[2024-09-22] MEDS ORDERED: ATORVASTATIN 40 MG TAB PO SCH (21:00)
--- NOTE | 2024-09-23 01:19 | HP ---
HISTORY AND PHYSICAL CHIEF COMPLAINT: Chest pain. HISTORY OF PRESENT ILLNESS: This is the first known admission for this -[id number]-[id number] female who has been in fairly good health and rarely comes to the office. Apparently, she came to the emergency room with chest pain. Cardiac enzymes are normal. She had no significant abnormalities in terms of her vital signs or her EKG. She was admitted for observation. She has otherwise been healthy. Past medical history, family history, personal and social histories are unremarkable. She currently does not take medications. She does not smoke or drink. PHYSICAL EXAMINATION: VITAL SIGNS: Blood pressure is normal. Pulse of 74. HEAD, EARS, EYES, NOSE, MOUTH AND THROAT: Normal. CHEST: Clear. CARDIAC: Normal. ABDOMEN: Soft and nontender. EXTREMITIES: Normal. IMPRESSION: Chest pain. PLAN: 1. Bed rest. 2. IV fluids. 3. Serial EKGs and enzymes. 4. Cardiology consult. MMZAHEERL / TERESSAN: [id number] /
--- NOTE | 2024-09-23 03:28 | PN ---
PROGRESS NOTE CHIEF COMPLAINT: Chest pain. 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 PHYSICAL EXAMINATION: Deferred. IMPRESSION: Chest pain. PLAN: Follow after her cardiac cath or stress test depending on which is being performed. MMODL / IJN: [id number] /
--- NOTE | 2024-09-23 21:19 | DS ---
DISCHARGE SUMMARY CHIEF COMPLAINT: Chest pain. HISTORY OF PRESENT ILLNESS AND PHYSICAL EXAMINATION: Details of this lady's history and physical can be found in the initial workup. LABORATORY STUDIES: While she was in the hospital, she had laboratory studies, details of which can be found in the laboratory section of her chart. COURSE IN THE HOSPITAL: After admission, she was placed on bedrest, started on intravenous fluids and had serial EKGs and enzymes which were normal. She was seen by Cardiology and taken for a stress test. Report was pending. However, the patient was anxious to leave the hospital and she signed out against medical advice. FINAL DIAGNOSES: 1. Chest pain. 2. Hyperlipidemia. OPERATIONS: None. CONSULTATIONS: Cardiology. MMODL / IJN: [id number] /
--- NOTE | 2024-09-24 08:57 | CA ---
Transthoracic Echo Report Name: Miriam Diaz Age: 68 Gender: F : 1955 Exam Date: 09/22/2024 09:32 Exam Location: [place] [facility] Ht (in): 60 Wt (lb): 170 Ordering Physician: Carey Noguera Attending/Referring Phys: [id number], Poornima Assistant Office Manager Alisia Navas RDCS Procedure CPT: Indications: LV function, CP Cardiac Hx: Technical Quality: Fair Contrast 1: Total Dose (mL): Contrast 2: Total Dose (mL): MEASUREMENTS (Male / Female) Normal Values 2D ECHO LV Diastolic Diameter PLAX 3.2 cm 4.2 - 5.9 / 3.9 - 5.3 cm LV Systolic Diameter PLAX 2.3 cm IVS Diastolic Thickness 1.0 cm 0.6 - 1.0 / 0.6 - 0.9 cm LVPW Diastolic Thickness 1.2 cm 0.6 - 1.0 / 0.6 - 0.9 cm LV Relative Wall Thickness 0.7 RV Internal Dim ED PLAX 1.7 cm LA Systolic Diameter LX 3.6 cm 3.0 - 4.0 / 2.7 - 3.8 cm LV Diastolic Volume MOD BP 57.0 cm??? 67 - 155 / 56 - 104 cm??? LV Systolic Volume MOD BP 21.2 cm??? 22 - 58 / 19 - 49 cm??? LV Ejection Fraction MOD BP 62.9 % >= 55 % LV Cardiac Index MOD BP 2062.4 cm???/min???m??? LV Diastolic Volume MOD 4C 51.3 cm??? LV Systolic Volume MOD 4C 22.4 cm??? LV Ejection Fraction MOD 4C 56.3 % LV Cardiac Index MOD 4C 1662.8 cm???/min???m??? LV Diastolic Length 4C 6.8 cm LV Systolic Length 4C 5.3 cm LV Diastolic Volume MOD 2C 62.3 cm??? LV Systolic Volume MOD 2C 17.9 cm??? LV Ejection Fraction MOD 2C 71.3 % LV Cardiac Index MOD 2C 2558.4 cm???/min???m??? LV Diastolic Length 2C 6.7 cm LV Systolic Length 2C 6.0 cm M-MODE Aortic Root Diameter MM 3.2 cm LA Systolic Diameter MM 3.2 cm LA Ao Ratio MM 1.0 AV Cusp Separation MM 1.8 cm DOPPLER Mitral E Point Velocity 110.6 cm/s Mitral A Point Velocity 143.5 cm/s Mitral E to A Ratio 0.8 MV Deceleration Time 172.3 ms MV E' Velocity 8.0 cm/s Mitral E to MV E' Ratio 13.9 TR Peak Velocity 255.0 cm/s TR Peak Gradient 26.0 mmHg Right Ventricular Systolic Press 36.0 mmHg FINDINGS Left Ventricle Left ventricular ejection fraction is estimated at 55-60 %. Mildly increased posterior wall thickness. Normal left ventricular systolic function with no obvious regional wall motion abnormalities. Left ventricular cavity size normal. Right Ventricle Normal right ventricular size and function. Mild pulmonary hypertension. Right Atrium Mild right atrial dilatation. Left Atrium Normal left atrial size. Mitral Valve Structurally normal mitral valve. Mild mitral regurgitation. No mitral stenosis. Aortic Valve Trileaflet aortic valve. No aortic valve stenosis or regurgitation. Tricuspid Valve Structurally normal tricuspid valve. Mild to moderate tricuspid regurgitation. No tricuspid stenosis. Pulmonic Valve Pulmonic valve not well visualized. No pulmonic stenosis. Pericardium No pericardial or pleural effusion. Aorta Normal size aortic root and proximal ascending aorta. CONCLUSIONS 1. Normal left ventricular size and systolic function 2. Mild mitral regurgitation 3. Mild to moderate tricuspid regurgitation with mild pulmonary hypertension Previewed by: Dr. Brandee Parks MD (Electronically Signed) Final Date: 24 September 2024 08:56
== END 2024-09-22 17:59 | disposition left against medical advice (07) ==
LOC: EC 18:30 → 6NMEDSUR 21:21 → 1SOBS 09-22 10:38 → 6NMEDSUR 09-22 15:34
PROVIDERS: ADMIT Family Medicine; ATTEND Family Medicine
DX: R07.9 Chest pain, unspecified (principal); E78.5 Hyperlipidemia, unspecified; E66.9 Obesity, unspecified; Z68.33 Body mass index [BMI] 33.0-33.9, adult; Z11.52 Encounter for screening for COVID-19; Z53.29 Procedure and treatment not carried out because of patient's decision for other reasons
CPT/HCPCS: 99285; 36415; 93005; 93306; 85379; 80061; 80053; 83735; 84484 ×2; 85025; 85610; 85730; 83036; 87636; 71046; 71275; G0378 ×3; C8930; Q9957; Q9967; 93351